=== PATIENT | male | born 1985 ===

== ENCOUNTER 2016-07-29 04:44 | Emergency (ER) | payer SELFPAY ==
[~2016-07-29] VITALS: Ht 180.3 cm; Wt 120.2 kg
[2016-07-29] MEDS ORDERED: NKM (04:56)
[2016-07-29 05:05] VITALS: BP 111/71
[2016-07-29] MEDS ORDERED: TdaP Vaccine 0.5ml Syr IM ONE (05:15)
[2016-07-29] MEDS ORDERED: IBUPROFEN600 MG ORAL (06:03)
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
[2016-07-29 06:30] VITALS: BP 96/67
[2016-07-29 06:34] VITALS: BP 96/67
--- NOTE | 2016-07-30 08:45 | Diagnostic Imaging Report ---
Indication: Head trauma/pain Technique: Continuous helical CT scanning of the head was performed utilizing automated exposure control without intravenous contrast material. Axial and coronal reconstructions were obtained. Comparison: None CT dose: Total DLP 1464 mGycm; CTDI vol 70.4 mGy Findings: There is no acute intracranial hemorrhage, mass effect or cortical edema. The ventricles, cisterns and sulci are within normal limits. The posterior fossa and fourth ventricle are unremarkable. Sellar and suprasellar regions are grossly unremarkable. Visualized mastoid air cells and paranasal sinuses are unremarkable. There is no skull fracture. There is a questionable nondisplaced left nasal acuity indeterminate fracture deformity. Impression: No evidence of acute intracranial hemorrhage, mass effect or cortical edema. MRI may be obtained for more sensitive evaluation as clinically indicated. Questionable nondisplaced left nasal acute indeterminate fracture deformity. Clinical correlation recommended. The CT scanner at [facility] is accredited by the [employer] and the scans are performed using protocols designed to limit radiation exposure to as low as reasonably achievable to attain images of sufficient resolution adequate for diagnostic evaluation.
== END 2016-07-29 06:34 | disposition home or self-care (01) ==
LOC: EMR 05:19
DX: S01.01XA Laceration without foreign body of scalp, initial encounter (principal); S09.8XXA Other specified injuries of head, initial encounter; Y04.0XXA Assault by unarmed brawl or fight, initial encounter; Y92.511 Restaurant or cafe as the place of occurrence of the external cause; Z23 Encounter for immunization
CPT/HCPCS: 70450; 90471; 90715